=== PATIENT | female | born 1970 | race Caucasian/White ===

== ENCOUNTER 2019-07-31 05:12 | Day surgery (SDC) | payer OTHER ==
[2019-07-30 13:00] LABS: BASOPHILS % (AUTO) 0.8 % (0.0-2.0); EOSINOPHILS % (AUTO) 2.1 % (1.0-6.0); HEMOGLOBIN 13.9 g/dL (12.0-16.0); LYMPHOCYTES # (AUTO) 2.2 K/uL (1.0-4.8); LYMPHOCYTES % (AUTO) 31.9 % (22.0-44.0); MEAN CORPUSCULAR HEMOGLOBIN 29.1 pg (26.0-34.0); MEAN CORPUSCULAR HGB CONC 33.2 G/dL (31.0-37.0); MEAN CORPUSCULAR VOLUME 88 fL (80-100); MONOCYTES # (AUTO) 0.5 K/uL (0.1-1.0); MONOCYTES % (AUTO) 7.7 % (2.0-9.0); NEUTROPHILS % (AUTO) 57.5 % (40.0-70.0); PLATELET COUNT (AUTO) 231 K/uL (150-450); RED CELL DISTRIBUTION WIDTH 14.4 % (11.5-14.5)
[2019-07-30 13:07] LABS: CREATININE 1.15 mg/dL (0.60-1.30); POTASSIUM 4.3 mmol/L (3.5-5.1)
[2019-07-30 13:08] LABS: CALCIUM, TOTAL 8.9 mg/dL (8.8-10.5)
[2019-07-30 13:20] LABS: PROTHROMBIN TIME 10.3 SEC (9.4-11.6)
[~2019-07-31] VITALS: Ht 158.8 cm; Wt 151.4 kg
[~2019-07-31 05:12] MED LIST: CYCL10 PO; GABA-1201 PO; INSNOV SQ; INSU100V37 SQ; ISOS30TA6 PO; LISI-660 PO; MULT1CAP32 PO; OMEG-135 PO; OXYC5 PO
[2019-07-31] MEDS ORDERED: MIDAZOLAM HCL 2 MG/2 ML VIAL IVP ONE (05:13)
[2019-07-31] MEDS ORDERED: 0.9% SODIUM CHLORIDE 10 ML VIAL IVP ONE (05:13)
[2019-07-31] MEDS ORDERED: LIDOCAINE 1% 10 ML VIAL IM ONE (05:13)
[2019-07-31] MEDS ORDERED: EPHEDrine SULFATE 50 MG/ML VIAL IM ONE (05:13)
[2019-07-31] MEDS ORDERED: FentaNYL CITRATE-PF 100 MCG/2 ML VIAL IVP ONE (05:13)
[2019-07-31] MEDS ORDERED: ONDANSETRON HCL 4 MG/2 ML VIAL IVP ONE (05:13)
[2019-07-31] MEDS ORDERED: PROPOFOL 1% 20 ML VIAL IVP ONE (05:13)
[2019-07-31] MEDS ORDERED: SUCCINYLCHOLINE CHLORIDE 20 MG/ML 10 ML VIAL IVP ONE (05:13)
[2019-07-31] MEDS ORDERED: ROCURONIUM BROMIDE 10 MG/ML 5 ML VIAL IVP ONE (05:13)
[2019-07-31] MEDS ORDERED: RINGERS SOLUTION,LACTATED 1,000 ML IV ONE ×3 (05:30→07:00)
[2019-07-31] MEDS ORDERED: CeFAZolin 2 GM/DEXTROSE 0 ML IV ONE (05:31)
[2019-07-31] MEDS ORDERED: CLINDAMYCIN 900 MG/D5% WATER 50 ML IV ONE (06:00)
[2019-07-31 06:18] LABS: GLUCOMETER DEV NAME(LOC) SDS.; GLUCOSE,POINT OF CARE 105 MG/DL (70-110)
[2019-07-31] MEDS ORDERED: CeFAZolin 2 GM/DEXTROSE 50 ML IV ONE (07:00)
[2019-07-31] MEDS ORDERED: CHLORHEXIDINE GLUCONATE 4% 118 ML TOPICAL LIQUID TP ONE ×2 (07:30→08:01)
[2019-07-31] MEDS ORDERED: FentaNYL CITRATE-PF 100 MCG/2 ML VIAL IVP PRN (09:15)
[2019-07-31] MEDS ORDERED: OXYGEN THERAPY IH SCH (20:00)
== END 2019-07-31 10:50 | disposition home or self-care (01) ==
LOC: SURGERY 05:12
PROVIDERS: ATTEND Orthopaedic Surgery
DX: S83.281A Other tear of lateral meniscus, current injury, right knee, initial encounter (principal); S83.241A Other tear of medial meniscus, current injury, right knee, initial encounter; E11.9 Type 2 diabetes mellitus without complications; I10 Essential (primary) hypertension; C95.90 Leukemia, unspecified not having achieved remission; X58.XXXA Exposure to other specified factors, initial encounter; Y93.89 Activity, other specified; Y92.89 Other specified places as the place of occurrence of the external cause; Y99.8 Other external cause status; E78.5 Hyperlipidemia, unspecified; Z98.890 Other specified postprocedural states
CPT/HCPCS: 29880; 36415; 80048; 82962; 84703; 85025; 85610; 85730; 87635; 93005; J0330; J2250; J2405; J2704; J3010; J3490 ×4; J7120; J0690

== ENCOUNTER 2019-11-06 10:10 | Day surgery (SDC) | payer OTHER ==
[~2019-11-06] VITALS: Ht 157.5 cm; Wt 152.7 kg
[2019-11-06] MEDS ORDERED: PROPOFOL 1% 20 ML VIAL IVP ONE (10:11)
[2019-11-06] MEDS ORDERED: MORPHINE SULFATE 4 MG/ML SYRINGE IVP ONE (10:11)
[2019-11-06] MEDS ORDERED: MORPHINE SULFATE/PF 0.5 MG/ML 10 ML AMP IVP ONE (10:11)
[2019-11-06] MEDS ORDERED: DEXAMETHASONE SOD PHOS 4 MG/ML VIAL IVP ONE (10:11)
[2019-11-06] MEDS ORDERED: FentaNYL CITRATE-PF 100 MCG/2 ML VIAL IVP ONE (10:11)
[2019-11-06] MEDS ORDERED: LIDOCAINE/PF 2% 5 ML VIAL IM ONE (10:11)
[2019-11-06] MEDS ORDERED: MIDAZOLAM HCL 2 MG/2 ML VIAL IVP ONE (10:11)
[2019-11-06] MEDS ORDERED: SUCCINYLCHOLINE CHLORIDE 20 MG/ML 10 ML VIAL IVP ONE (10:11)
[2019-11-06] MEDS ORDERED: ONDANSETRON HCL 4 MG/2 ML VIAL IVP ONE (10:11)
[2019-11-06] MEDS ORDERED: ROCURONIUM BROMIDE 10 MG/ML 5 ML VIAL IVP ONE (10:11)
[2019-11-06] MEDS ORDERED: KETOROLAC TROMETHAMINE 60 MG/2 ML VIAL IM ONE (10:11)
[2019-11-06] MEDS ORDERED: RINGERS SOLUTION,LACTATED 1,000 ML IV ONE ×2 (10:32→12:00)
[2019-11-06] MEDS ORDERED: CeFAZolin 1 GM/DEXTROSE 50 ML IV ONE ×2 (10:43→12:00)
[2019-11-06 11:29] LABS: GLUCOMETER DEV NAME(LOC) SDS.; GLUCOSE,POINT OF CARE 114 MG/DL (70-110)
[2019-11-06] MEDS ORDERED: BUPIVACAINE HCL/PF 0.5% 30 ML VIAL ONE (11:51)
[2019-11-06] MEDS ORDERED: BUPIVACAINE/EPI/PF 0.5% 30 ML VIAL ONE (11:51)
[2019-11-06] MEDS ORDERED: EPINEPHrine 1:1,000 [1 MG/ML] AMP ONE (11:52)
[2019-11-06] MEDS ORDERED: SODIUM CL IRRIG SOLN BAG 0 ML IRRIG ONE (11:52)
[2019-11-06] MEDS ORDERED: HYDROmorphone 2 MG/ML SYRINGE IVP PRN (12:30)
[2019-11-06] MEDS ORDERED: FentaNYL CITRATE-PF 100 MCG/2 ML VIAL IVP PRN (12:30)
[2019-11-06] MEDS ORDERED: MEPERIDINE-PF 25 MG/ML VIAL IVP PRN (12:30)
[2019-11-06] MEDS ORDERED: SODIUM CL IRRIG SOLN BAG 6,000 ML IRRIG ONE (12:41)
[2019-11-06] MEDS ORDERED: MUPIROCIN CALCIUM 2% 22 GM OINTMENT ONE (13:13)
[2019-11-06] MEDS ORDERED: SUGAMMADEX SODIUM 200 MG/2 ML VIAL IVP ONE (13:17)
[2019-11-06] MEDS ORDERED: ACETAMINOPHEN 1000 MG/ISO-OSM 100 ML IV ONE (13:17)
[2019-11-06] MEDS ORDERED: OXYGEN THERAPY IH SCH (20:00)
== END 2019-11-06 15:30 | disposition home or self-care (01) ==
LOC: SURGERY 10:10
PROVIDERS: ATTEND Orthopaedic Surgery
DX: S99.812A Other specified injuries of left ankle, initial encounter (principal); S82.492A Other fracture of shaft of left fibula, initial encounter for closed fracture; M19.172 Post-traumatic osteoarthritis, left ankle and foot; M65.872 Other synovitis and tenosynovitis, left ankle and foot; G47.00 Insomnia, unspecified; E78.00 Pure hypercholesterolemia, unspecified; E11.9 Type 2 diabetes mellitus without complications; E66.01 Morbid (severe) obesity due to excess calories; I10 Essential (primary) hypertension; W19.XXXA Unspecified fall, initial encounter; Y93.89 Activity, other specified; Y92.89 Other specified places as the place of occurrence of the external cause; Y99.8 Other external cause status; Z98.42 Cataract extraction status, left eye; Z98.41 Cataract extraction status, right eye; Z98.890 Other specified postprocedural states; Z79.4 Long term (current) use of insulin
CPT/HCPCS: 27695; 29895; 82962; 87426; C1716; J0131; J0171; J0330; J0690; J1100; J1885; J2250; J2270; J2274; J2405; J2704; J3010; J3490 ×3; J7120

== ENCOUNTER 2021-09-27 12:34 | Emergency (ER) | payer MEDICARE, OTHER ==
[~2021-09-27] VITALS: Ht 157.5 cm; Wt 170.9 kg
[~2021-09-27 12:34] MED LIST changes: +CYCL-448 PO; -CYCL10 PO; -ISOS30TA6 PO; +ISOS30TA92 PO; -LISI-660 PO; +LISI-892 PO
[2021-09-27 13:40] LABS: COVID AG,FIA SOURCE NASOPHARYNGEAL
[2021-09-27 14:59] LABS: BASOPHILS % (AUTO) 0.4 % (0.0-2.0); EOSINOPHILS % (AUTO) 3.2 % (1.0-6.0); HEMATOCRIT 42.4 % (36-46); HEMOGLOBIN 13.9 g/dL (12.0-16.0); MEAN CORPUSCULAR HEMOGLOBIN 28.6 pg (26.0-34.0); MEAN CORPUSCULAR HGB CONC 32.8 G/dL (31.0-37.0); MEAN CORPUSCULAR VOLUME 87 fL (80-100); MONOCYTES # (AUTO) 0.8 K/uL (0.1-1.0); MONOCYTES % (AUTO) 12.8 % (2.0-9.0); NEUTROPHILS # (AUTO) 3.5 K/uL (1.8-7.7); NEUTROPHILS % (AUTO) 53.6 % (40.0-70.0); PLATELET COUNT (AUTO) 207 K/uL (150-450); RED BLOOD CELL COUNT(AUTO) 4.87 MIL/uL (4.00-5.20); RED CELL DISTRIBUTION WIDTH 14.7 % (11.5-14.5)
[2021-09-27 15:13] LABS: CALCIUM, TOTAL 8.6 mg/dL (8.8-10.5); CREATININE 1.04 mg/dL (0.60-1.30); POTASSIUM 4.3 mmol/L (3.5-5.1)
[2021-09-27 15:16] LABS: ALBUMIN 3.1 g/dL (3.4-5.0); BILIRUBIN,TOTAL 0.3 mg/dL (0.1-1.0); TOTAL PROTEIN, SERUM 7.7 g/dL (6.4-8.2)
[2021-09-27] MEDS ORDERED: ALBUTEROL SULFATE HFA 90 MCG/PUFF 8 GM INHALER IH ONE (15:30)
[2021-09-27 16:19] VITALS: BP 148/70
[2021-09-27] MEDS ORDERED: BENZ-70 PO (16:37)
== END 2021-09-27 16:52 | disposition home or self-care (01) ==
LOC: EMS 12:35
DX: J40 Bronchitis, not specified as acute or chronic (principal); M19.90 Unspecified osteoarthritis, unspecified site; F32.A Depression, unspecified; E11.9 Type 2 diabetes mellitus without complications; I10 Essential (primary) hypertension; E66.9 Obesity, unspecified; Z98.51 Tubal ligation status; Z98.890 Other specified postprocedural states; Z88.6 Allergy status to analgesic agent; Z88.1 Allergy status to other antibiotic agents; Z91.040 Latex allergy status; Z88.0 Allergy status to penicillin; Z88.8 Allergy status to other drugs, medicaments and biological substances; Z91.018 Allergy to other foods; Z91.09 Other allergy status, other than to drugs and biological substances; Z20.822 Contact with and (suspected) exposure to COVID-19
CPT/HCPCS: 71046; 80053; 82962; 84484; 85025; 93005; 94640; 99285; J3535; 36415-L1; 36415-TC